=== PATIENT | female | born 1965 | race African-American/Black ===

== ENCOUNTER 2024-11-04 14:38 | Emergency (ER) | payer OTHER, SELFPAY ==
[2024-11-04 14:38] VITALS: BMI 24.0
--- NOTE | 2024-11-04 14:42 | EKG_ITS ---
[facility] Test Date: 2024-11-04 Pat Name: BETTE PRITCHARD Department: Room: - Gender: Female [employer] Operator: : 1965 Requested By: ED Temporary Provider Order Number: [id number] Reading MD: ED Temporary Provider Measurements Intervals [place] Rate: 57 P: 39 ND: 176 QRS: 13 QRSD: 91 T: -7 QT: 420 QTc: 409 Interpretive Statements SINUS BRADYCARDIA LEFT ATRIAL ENLARGEMENT [-0.15mV P-WAVE IN V1/V2] POSSIBLE LEFT VENTRICULAR HYPERTROPHY [VOLTAGE CRITERIA PLUS LAE OR QRS WIDENING] NONSPECIFIC ST & T-WAVE ABNORMALITY No previous ECG available for comparison /store/S0/[id number]/ecg/[id number].pdf
[2024-11-04 14:49] VITALS: BP 162/86; PULSE 64; RESP 18; TEMP 36.9; O2SAT 98
[2024-11-04 15:17] LABS: Basophils # (Auto) 0.1 Thou/mm3 (0.0-0.2); Basophils % (Auto) 1 % (0-2.5); Eosinophils # (Auto) 0.5 Thou/mm3 (0.0-0.5); Eosinophils % (Auto) 4 % (0-10); Hematocrit 45.0 % (36.0-46.0); Hemoglobin 14.8 g/dL (12.0-16.0); Immature Granulocytes Auto 0.05 Thou/mm3 (0.00-0.00); Lymphocytes # (Auto) 4.2 Thou/mm3 (1.0-4.8); Lymphocytes % (Auto) 33 % (10-50); Mean Corpuscular HGB Conc 32.9 g/dl (31.0-37.0); Mean Corpuscular Hemoglobin 30.8 pg (25.0-35.0); Mean Corpuscular Volume 94 fL (80-100); Monocytes # (Auto) 0.8 Thou/mm3 (0.0-0.8); Monocytes % (Auto) 6 % (0-12); Neutrophils # (Auto) 7.0 Thou/mm3 (1.8-7.7); Neutrophils % (Auto) 55 % (37-80); Nucleated Red Blood Cell # 0.00 Thou/mm3 (0.00-0.00); Nucleated Red Blood Cell % 0 /100 WBC (0); Platelet Count 251 Thou/mm3 (140-440); RDW Standard Deviation 46.6 fL (36.4-46.3); Red Blood Count 4.80 Miln/mm3 (4.00-5.20); White Blood Count 12.7 Thou/mm3 (3.6-11.0)
--- NOTE | 2024-11-04 15:28 | PD.EDRME ---
Rapid Medical Screening Exam RME Arrival date/time: 11/04/24 14:38 59-year-old female with a history of an WI last year presents to the emergency room with a chief complaint of sternal chest pain that radiates to her right jaw. Patient states it is a 6 out of 10 that has progressively gotten worse. I have greeted and performed a focused initial assessment of this patient. A comprehensive ED assessment and evaluation of the patient, analysis of all test results, and completion of the medical decision making process will be conducted by additional ED providers. Chief Complaint: Chest Pain Time Seen by Provider: 11/04/24 14:48 Vital signs: Vital Signs Temperature 98.4 F 11/04/24 14:49 Pulse Rate 64 11/04/24 14:49 Respiratory Rate 18 11/04/24 14:49 Blood Pressure 162/86 H 11/04/24 14:49 Pulse Oximetry (%) 98 11/04/24 14:49 Oxygen Delivery Method Room Air 11/04/24 14:49 Vital signs reviewed by provider: Yes
[2024-11-04 15:34] LABS: INR 1.0 (0.9-1.3); Partial Thromboplastin Time 29.1 Seconds (22.0-36.0); Prothrombin Time 11.4 Seconds (9.0-12.2)
[2024-11-04 15:38] LABS: B-Type Natriuretic Peptide 46 pg/mL (0-100)
[2024-11-04 15:39] LABS: Alanine Aminotransferase 21 U/L (10-49); Albumin, Serum 4.9 gm/dL (3.5-5.0); Albumin/Globulin Ratio 2.3 (1.2-2.2); Alkaline Phosphatase 118 U/L (46-116); Anion Gap 6 (7-16); Aspartate Amino Transferase 21 U/L (0-34); BUN/Creatinine Ratio 11 Ratio (12-20); Bilirubin,Total 0.5 mg/dL (0.3-1.2); Blood Urea Nitrogen 10 mg/dL (9-23); Calcium 10.5 mg/dL (8.3-10.6); Calcium (Corrected) 10.5 mg/dL (8.5-10.1); Carbon Dioxide 28.3 mMol/L (20.0-31.0); Chloride 108 mMol/L (98-107); Creatinine (Component) 0.9 mg/dL (0.6-1.3); Estimated Creatinine Clearance 58.8 mL/min (>60); Globulin 2.1 gm/dL (2.3-3.5); Glucose 92 mg/dL (74-106); Osmolality,Calculated 282 (275-295); Potassium 4.1 mMol/L (3.4-5.1); Sodium 142 mMol/L (136-145); Total Protein 7.0 gm/dL (5.7-8.2); eGFR > 60 See Note
[2024-11-04 15:42] LABS: Troponin I 0.066 ng/mL (0.0-0.045)
[2024-11-04 16:38] LABS: Collection Type, Urine Clean Catch
[2024-11-04 17:46] LABS: Bilirubin,Urine Negative (Negative); Blood,Urine 1+ (Negative); Clarity,Urine Clear (Clear/Hazy); Color,Urine Lt-Yellow (Lt Yel-Yel); Glucose, Urine Negative (Negative); Ketones,Urine Negative (Negative); Leukocyte Esterase,Urine Negative (Negative); Nitrite,Urine Negative (Negative); PH,Urine 6.5 (5.0-7.0); Protein,Urine Negative (Neg - Trace); RBC,Urine 4 /hpf (0-3); Specific Gravity,Urine 1.018 (1.001-1.035); Squamous Epithelial Cell,Urine 5 /hpf (0-5); Urobilinogen,Urine Negative mg/dL (0.0-1.0); WBC,Urine 1 /hpf (0-5)
--- NOTE | 2024-11-04 18:46 | PD.EDCHEST ---
ED Chest Pain RME/HPI General Chief Complaint: Chest Pain Stated Complaint: CHEST PAIN W/ L) JAW/NECK PAIN Time Seen by Provider: 11/04/24 14:48 Arrival date/time: 11/04/24 14:38 RME / HPI RME / HPI narrative: 11/04/24 14:38 59-year-old female with a history of an AK last year presents to the emergency room with a chief complaint of sternal chest pain that radiates to her right jaw. Patient states it is a 6 out of 10 that has progressively gotten worse. I have greeted and performed a focused initial assessment of this patient. A comprehensive ED assessment and evaluation of the patient, analysis of all test results, and completion of the medical decision making process will be conducted by additional ED providers. -------- Dr. Mcclellan?s Main ED Evaluation: 59yo female with a history of HTN, AK s/p stent placement (June 2023), aortic dissection (August 2023), on blood thinners presents to the ED for a chief complaint of chest tightness. Patient initially started having jaw pain that radiated down her neck this morning, reporting it subsided after she took Tylenol and her daily dose of aspirin. She then developed chest tightness (no radiation or migration), nausea, and a headache. Patient called [facility], took 3 additional baby aspirin, and was told to come in for evaluation. She currently rates her pain a 7 out of 10. Patient does have shortness of breath on exertion. Patient denies any BLE swelling, numbness, tingling, vision changes, or any other associated symptoms. NKA. Related Data Allergies Allergy/AdvReac Type Severity Reaction Status Date / Time No Known Allergies Allergy Verified 11/04/24 14:41 Review of Systems Review of Systems Systems Reviewed: All systems reviewed, normal except as documented Past Medical History Social History SMOKING STATUS: Current every day smoker ED Exam Narrative Physical exam: GENERAL APPEARANCE: alert and oriented x 4, well-developed, well-nourished, no acute distress VITALS: All vitals were reviewed and the pulse ox is 98% on room air, which is normal according to my interpretation. HEENT: Normocephalic, atraumatic; pupils equal, round, reactive to light; EOMI; mucous membranes pink, moist; oropharynx clear NECK: Supple LUNGS: CTABL; no wheezes, no rales, no rhonchi HEART: Regular rate, regular rhythm; opening snap, normal S1, S2; no murmurs ABDOMEN: non distended; normal BS; soft, no tenderness, no guarding, no rebound; no masses, no organomegaly, no hernia BACK: no CVA tenderness EXTREMITIES: atraumatic; no edema NEUROLOGIC: awake; alert and oriented x4; cranial nerves II-XII grossly intact; no focal sensory or motor deficits PSYCHIATRIC: appropriate mood and affect SKIN: warm, dry, normal color; no rashes Course Quality Measures none Orders Category Date Time Status CT Screening NOW Care 11/04/24 21:09 Active EKG (ED ONLY) *Do not use* NOW Care 11/04/24 14:[address] angio chest abdomen pelvis Stat Exams 11/04/24 21:08 Completed EKG (ED Only) Stat Exams 11/04/24 14:42 Draft B-Type Natriuretic Peptide Stat Lab 11/04/24 14:58 Completed CBC Stat Lab 11/04/24 14:58 Completed Comprehensive Metabolic Panel Stat Lab 11/04/24 14:58 Completed Partial Thromboplastin Time Stat Lab 11/04/24 14:58 Completed Prothrombin Time with INR Stat Lab 11/04/24 14:58 Completed Troponin I Stat Lab 11/04/24 14:58 Completed Troponin I Stat Lab 11/04/24 19:43 Completed Troponin I Stat Lab 11/04/24 23:15 Completed Urinalysis Stat Lab 11/04/24 16:00 Completed Acetaminophen Tab [Tylenol Tab] Med 11/04/24 20:35 Discontinued 650 mg PO X1 ONE Bacitracin Oint Tube Med 11/04/24 20:17 Discontinued See Dose Instructions TOP X1 ONE Lidocaine/Prilocaine Cr 5Gm [Emla Cr] Med 11/04/24 20:16 Discontinued See Dose Instructions TOP X1 ONE Morphine Inj Med 11/04/24 19:06 Discontinued 2 mg IVP X1 ONE Nitroglycerin [Nitrostat 1/150] Med 11/04/24 20:51 Discontinued 0.4 mg SL X1 ONE Ondansetron Inj [Zofran Inj] Med 11/04/24 19:06 Discontinued 4 mg IVP X1 ONE Vital Signs Vital signs: Vital Signs Temperature 98.4 F 11/04/24 14:49 Pulse Rate 64 11/04/24 14:49 Respiratory Rate 18 11/04/24 14:49 Blood Pressure 162/86 H 11/04/24 14:49 Pulse Oximetry (%) 98 11/04/24 14:49 Oxygen Delivery Method Room Air 11/04/24 14:49 Chest Pain MDM Narrative MDM Narrative:: Scribe Attestation: 11/04/24 Mari Masters am scribing for and in the presence of Dr. Mcclellan. Patient data External records reviewed:: [facility] previous records (Per chart review, patient has no previous ED visits or admissions to this facility.) Clinical information provided by:: patient Social determinants that could affect healthcare access:: none Patient has the following chronic illnesses:: HTN, AK s/p stent placement (June 2023), aortic dissection (August 2023) How is presenting disease/condition affected by chronic disease/condition?: uneffected by Evaluation data The following diagnostics were reviewed and interpreted by me:: lab results and EKG tracing(s) Lab and/or radiology exams considered but not ordered:: none Interpretation Summary: WBC 12.7, Initial Troponin 0.066, CMP normal, BNP normal, UA unremarkable. Repeat Troponin 0.068. 3rd troponin 0.066. EKG done at 1446, sinus bradycardia, rate of 57, T wave inversion in lead III and avF, flattening ST segments in lead II and V1, no STEMI, according to my interpretation. [place] [facility] Report Signed Patient: BETTE PRITCHARD Record#: [id number] Birthdate: 1965 Age/Sex: 59 / F Location: [facility] Attending Dr: Ordering Physician: Crystal Mcclellan MD Date of Service: 11/04/24 Procedure(s): CT angio chest abdomen pelvis Accession Number(s): [id number] cc: Jabier Roland MD; NO PRIMARY/FAMILY,PHYSICIAN; Crystal Mcclellan MD~ Examination: CTA chest, with intravenous contrast. CTA abdomen, with intravenous contrast. CTA pelvis, with intravenous contrast. 2-D sagittal and coronal reconstructions. 3-D reconstructions. Date and time of exam: November 04, 2024 2155 hours INDICATIONS: Chest pain and jaw pain today CTDI vol (mgy) 8.69 DLP (MGycm) 564 Technique: Multiple CTA images, 2.0 mm slice thickness, obtained chest, abdomen, pelvis, with the high-resolution 64 slice scanner. 100 cc Isovue-370 is administered intravenously. Sagittal and coronal 2-D reconstructions are obtained. 3-D reconstructions, angiographic images are obtained. 3-D postprocessing, including vascular maximum intensity projections. Low dose protocols were performed. One or more of the following dose reduction techniques were used; automated exposure control, adjustment of the mA and/or KV according to patient size, use of iterative reconstruction technique. 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 3.8 cm No pulmonary artery emboli No paratracheal tracheobronchial or bronchopulmonary adenopathy Prominent vascular congestion Upper abdominal aorta 3 cm in dimension No focal liver or splenic lesions Contracted gallbladder No pancreatic mass No renal or ureteral calculi, no hydronephrosis No abdominal aortic dissection No bowel obstruction No CT findings of appendicitis or diverticulitis Urinary bladder intact IMPRESSION: Thoracic aortic arch aneurysm dilatation No intimal flap or double lumen involving the thoracic aorta Upper abdominal aorta 3 cm in dimension Negative for pulmonary artery emboli Mild heart failure pattern Dictated By: Jabier Roland MD Signed By: <Electronically signed by Jabier Roland MD in OV> 11/04/24 2226 Medications / Prescriptions Medications or Prescriptions considered but not ordered:: none Medication administrations:: Medication Administration History Discontinued Medications Acetaminophen (Acetaminophen 325 Mg Tablet) 650 mg PO X1 ONE Stop: 11/04/24 20:36 Last Admin: 11/04/24 21:13 Dose: 650 mg Documented By: OA Bacitracin (Bacitracin Oint 15 Gm Tube) 0 gm TOP X1 ONE Stop: 11/04/24 20:18 Last Admin: 11/04/24 20:21 Dose: Not Given Documented By: MC Non-Admin Reason: Wrong Patient Lidocaine/Prilocaine (Lidocaine/Prilocaine Cr 5gm 5 Gm Tube) 0 gm TOP X1 ONE Stop: 11/04/24 20:17 Last Admin: 11/04/24 20:20 Dose: Not Given Documented By: MC Non-Admin Reason: Wrong Patient Morphine Sulfate (Morphine Sulf Inj 10 Mg/Ml Vial) 2 mg IVP X1 ONE Stop: 11/04/24 19:07 Last Admin: 11/04/24 20:01 Dose: 2 mg Documented By: CARLOS Nitroglycerin (Nitroglycerin 0.4 Mg Subl Btl #25) 0.4 mg SL X1 ONE Stop: 11/04/24 20:52 Last Admin: 11/04/24 22:39 Dose: Not Given Documented By: CARLOS Non-Admin Reason: Other, see note Comments: hold per dr. mcclellan Ondansetron HCl (Ondansetron Inj 2 Mg/Ml Inj 2 Ml) 4 mg IVP X1 ONE Stop: 11/04/24 19:07 Last Admin: 11/04/24 20:01 Dose: 4 mg Documented By: CARLOS see above Consultations Consultation(s) initiated? (list below): No Diagnosis Chest Pain Differential Diagnosis: stable angina, unstable angina pectoris and other (ACS, STEMI, NSTEMI, arrhythmia) Most likely diagnosis given after review of the tests above:: see clinical impression below Admission Indicated Admission indicated?: not indicated Explain why admission is indicated or not indicated:: With significant improvement and no condition needing emergent intervention, there was no indication for admission. Admission Request Was there a request for admission?: No Disposition Plan Disposition Plan: Discharge Discharge Attestation Discharge Attestation: The patient and all family members were given an opportunity to ask questions and understood the discharge instructions. Discharge instructions specifically effects, indications for sooner follow up or return to the emergency department, and the expected course of current diagnosis. Patient condition: Stable Discharge Plan Plan Patient Disposition: HOME (Self Care) Prescriptions/Referrals Referrals: No Primary/Family,Physician [Primary Care Provider] - In 1 week Problem List Clinical Impression: Chest pain Patient/Caregiver Discharge Instructions Education Materials: ED Chest Pain, Uncertain Cause Print Language: Gabonese Stand Alone Forms: [facility] Award Info., Patient Portal Info Letter
[2024-11-04 19:30] VITALS: BP 154/76; PULSE 61; RESP 17; TEMP 36.9; O2SAT 95
[2024-11-04] MEDS: MORPHINE SULF INJ 10 MG/ML VIAL 2 MG IVP (20:01)
[2024-11-04] MEDS: ONDANSETRON INJ 2 MG/ML INJ 2 ML 4 MG IVP (20:01)
[2024-11-04 20:45] LABS: Troponin I 0.068 ng/mL (0.0-0.045)
--- NOTE | 2024-11-04 21:08 | XR_ITS ---
Examination: CTA chest, with intravenous contrast. CTA abdomen, with intravenous contrast. CTA pelvis, with intravenous contrast. 2-D sagittal and coronal reconstructions. 3-D reconstructions. Date and time of exam: November 04, 2024 2155 hours INDICATIONS: Chest pain and jaw pain today CTDI vol (mgy) 8.69 DLP (MGycm) 564 Technique: Multiple CTA images, 2.0 mm slice thickness, obtained chest, abdomen, pelvis, with the high-resolution 64 slice scanner. 100 cc Isovue-370 is administered intravenously. Sagittal and coronal 2-D reconstructions are obtained. 3-D reconstructions, angiographic images are obtained. 3-D postprocessing, including vascular maximum intensity projections. Low dose protocols were performed. One or more of the following dose reduction techniques were used; automated exposure control, adjustment of the mA and/or KV according to patient size, use of iterative reconstruction technique. 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 3.8 cm No pulmonary artery emboli No paratracheal tracheobronchial or bronchopulmonary adenopathy Prominent vascular congestion Upper abdominal aorta 3 cm in dimension No focal liver or splenic lesions Contracted gallbladder No pancreatic mass No renal or ureteral calculi, no hydronephrosis No abdominal aortic dissection No bowel obstruction No CT findings of appendicitis or diverticulitis Urinary bladder intact IMPRESSION: Thoracic aortic arch aneurysm dilatation No intimal flap or double lumen involving the thoracic aorta Upper abdominal aorta 3 cm in dimension Negative for pulmonary artery emboli Mild heart failure pattern
[2024-11-04] MEDS: ACETAMINOPHEN 325 MG TABLET 650 MG PO (21:13)
[2024-11-04 23:32] VITALS: BP 138/85; PULSE 55; RESP 16; O2SAT 95
[2024-11-04 23:52] LABS: Troponin I 0.066 ng/mL (0.0-0.045)
[2024-11-05 00:06] VITALS: BP 131/70; PULSE 71; RESP 18; O2SAT 98
== END 2024-11-05 00:07 | disposition home or self-care (01) ==
PROVIDERS: Nurse Practitioner Family; Emergency Provider Emergency Medicine
DX: I71.22 Aneurysm of the aortic arch, without rupture (principal); R00.1 Bradycardia, unspecified; I10 Essential (primary) hypertension; I25.2 Old myocardial infarction; Z72.0 Tobacco use
CPT/HCPCS: 36415; 71275; 74174; 80053; 81001; 83880; 84484; 85025; 85610; 85730; 93005; 96374; 96375; 99284; A4649; J2270; J2405; Q9967; A9270